=== PATIENT | male | born 1975 ===

== ENCOUNTER 2017-03-14 19:55 | Emergency (ER) | payer MEDICAID ==
[2017-03-14 20:06] VITALS: BP 133/69; PULSE 83; RESP 16; TEMP 98.6; O2SAT 98
--- NOTE | 2017-03-14 21:18 | ED PDOC ---
Lower Extremity Pain/Injury Time Seen by Provider: 03/14/17 20:15 Chief Complaint (Nursing): Lower Extremity Problem/Injury Chief Complaint (Provider): Left foot injury History Per: Patient History/Exam Limitations: no limitations Additional Complaint(s): Patient is a 42 y/o male with no significant past medical history presenting to the emergency department for a left foot injury sustained approximately three hours prior to arrival. Reports that as he was working on his car, he slipped on the snow and landed on his foot. He thought that something had snapped. Reports moderate pain on his left leg but is able to bear weight. Denies any other complaints. PCP: Dr. Blayne Dickinson Past Medical History Reviewed: Historical Data, Nursing Documentation, Vital Signs Vital Signs: Last Vital Signs Temp 98.6 F 03/14/17 20:04 Pulse 83 03/14/17 20:04 Resp 16 03/14/17 20:04 BP 133/69 03/14/17 20:04 Pulse Ox 98 03/14/17 20:04 - Medical History PMH: No Chronic Diseases - Family History Family History: States: No Known Family Hx - Immunization History Hx Tetanus Toxoid Vaccination: No Hx Influenza Vaccination: No Hx Pneumococcal Vaccination: No - Home Medications Home Medications: Ambulatory Orders Medication Instructions Recorded Ibuprofen [Motrin Tab] 800 mg PO Q8H PRN #15 tab 10/14/13 Motrin 800 mg PO 10/14/13 oxyCODONE/Acetaminophen [Percocet 1 tab PO QID PRN #4 tab 10/14/13 5/325 mg Tab] Naproxen 1 tab PO Q12 PRN #14 tab 03/14/17 - Allergies Allergies/Adverse Reactions: Allergies Allergy/AdvReac Type Severity Reaction Status Date / Time No Known Allergies Allergy Unverified 10/14/13 20:37 Review of Systems ROS Statement: Except As Marked, All Systems Reviewed And Found Negative Musculoskeletal: Positive for: Leg Pain (left leg and ankle) Physical Exam - Reviewed Nursing Documentation Reviewed: Yes Vital Signs Reviewed: Yes - Physical Exam Appears: Positive for: Well, Non-toxic, No Acute Distress Head Exam: Positive for: ATRAUMATIC, NORMAL INSPECTION, NORMOCEPHALIC Skin: Positive for: Normal Color, Warm, Dry Eye Exam: Positive for: Normal appearance Neck: Positive for: Normal, Painless ROM Cardiovascular/Chest: Positive for: Regular Rate, Rhythm Respiratory: Negative for: Accessory Muscle Use, Respiratory Distress Extremity: Positive for: Normal ROM, Tenderness (left lateral malleolus and left lateral leg. nontender knee.) Neurologic/Psych: Positive for: Alert, Oriented (x3) - ECG O2 Sat by Pulse Oximetry: 98 (RA) Pulse Ox Interpretation: Normal - Progress ED Course And Treament: ANKLE: NO ACUTE FX LEFT FOOT: NO ACUTE FX LEFT TIB/FIB: NO ACUTE FX PATIENT PLACED IN AIR-[employer] AND CRUTCHES Medical Decision Making Medical Decision Making: Time: 20:19 Initial impression: Left foot injury Initial plan: Left ankle x-ray Left foot x-ray Left tibia/fibula x-ray Reevaluation 21:20 Left ankle and foot x-ray: no acute findings. ~ Scribe Attestation: Documented by Skylar Mckoy, acting as a scribe for JHONY Cates. Provider Scribe Attestation: All medical record entries made by the Scribe were at my direction and personally dictated by me. I have reviewed the chart and agree that the record accurately reflects my personal performance of the history, physical exam, medical decision making, and the department course for this patient. I have also personally directed, reviewed, and agree with the discharge instructions and disposition. Disposition - Clinical Impression Clinical Impression: Ankle sprain and strain - Patient ED Disposition Is Patient to be Admitted: No - Disposition Referrals: Podiatry Clinic [Outside] Disposition: Routine/Home Disposition Time: 21:47 Condition: FAIR Prescriptions: Naproxen 1 tab PO Q12 PRN #14 tab PRN Reason: Pain, Moderate (4-7) Instructions: Ankle Sprain (ED) Forms: [employer] ([place]), [facility] ED School/Work Excuse
--- NOTE | 2017-03-15 11:08 | RAD ---
PROCEDURE: Left Ankle Radiographs. HISTORY: ankle injury COMPARISON: None FINDINGS: BONES: No acute fracture. . JOINTS: Ankle mortise maintained. Talar dome intact SOFT TISSUES: Lateral malleolar soft tissue swelling. OTHER FINDINGS: Small ankle joint effusion. IMPRESSION: Lateral malleolar soft tissue swelling and small ankle joint effusion without demonstrated fracture or dislocation.
--- NOTE | 2017-03-15 11:09 | RAD ---
PROCEDURE: Left Foot Radiographs. HISTORY: injury COMPARISON: None. FINDINGS: BONES: No acute fracture. . JOINTS: Normal. SOFT TISSUES: Unremarkable. OTHER FINDINGS: None. IMPRESSION: No demonstrated fracture or dislocation.
--- NOTE | 2017-03-15 11:10 | RAD ---
PROCEDURE: Radiographs of the left tibia and fibula. HISTORY: INJURY COMPARISON: None available. TECHNIQUE: Frontal and lateral views obtained. FINDINGS: BONES: No fracture or destructive lesion. JOINT SPACES: Unremarkable. OTHER FINDINGS: Mild lateral malleolar soft tissue swelling. Small ankle joint effusion IMPRESSION: Mild lateral malleolar soft tissue swelling and small ankle joint effusion without demonstrated fracture or dislocation.
== END 2017-03-14 22:22 | disposition home or self-care (01) ==
LOC: H.ER 19:55
DX: S93.402A Sprain of unspecified ligament of left ankle, initial encounter (principal); W00.0XXA Fall on same level due to ice and snow, initial encounter

== ENCOUNTER 2018-06-05 03:45 | Emergency (ER) | payer MEDICAID ==
[2018-06-05 04:11] VITALS: RESP 18; O2SAT 99
[2018-06-05] MEDS ORDERED: Tdap Vaccine 0.5 ml Vial (10-64 yrs) IM ONE ×2 (04:25→04:38)
[2018-06-05] MEDS ORDERED: Naproxen 500 MG TAB PO ONE (04:26)
--- NOTE | 2018-06-05 05:00 | ED PDOC ---
Upper Extremity Pain/Injury Time Seen by Provider: 06/05/18 04:01 Chief Complaint (Nursing): Finger,Hand,&Wrist Chief Complaint (Provider): Finger,Hand,&Wrist History Per: Patient History/Exam Limitations: no limitations Onset/Duration Of Symptoms: Days (2) Additional Complaint(s): 43 y/o male presents to the ED complaining of right had injury x2 days ago. Patient states that 2 days ago he was cleaning up glass from a broken windshield and accidentally got a piece of glass stuck in his right index finger. Patient has had throbbing pain since. Denies numbness or tingling. Patient's tetanus is not up to date. Past Medical History Reviewed: Historical Data, Nursing Documentation, Vital Signs Vital Signs: Last Vital Signs Temp 98.1 F 06/05/18 04:08 Pulse 68 06/05/18 04:08 Resp 18 06/05/18 04:08 BP 154/92 H 06/05/18 04:08 Pulse Ox 99 06/05/18 04:08 - Medical History PMH: No Chronic Diseases - Surgical History Surgical History: No Surg Hx - Family History Family History: States: Unknown Family Hx - Immunization History Hx Tetanus Toxoid Vaccination: No Hx Influenza Vaccination: No Hx Pneumococcal Vaccination: No - Home Medications Home Medications: Ambulatory Orders Medication Instructions Recorded Ibuprofen [Motrin Tab] 800 mg PO Q8H PRN #15 tab 10/14/13 Motrin 800 mg PO 10/14/13 oxyCODONE/Acetaminophen [Percocet 1 tab PO QID PRN #4 tab 10/14/13 5/325 mg Tab] Naproxen 1 tab PO Q12 PRN #14 tab 03/14/17 Amoxicillin/Clavulanate [Augmentin 1 tab PO BID #20 tab 06/05/18 875 MG-125 MG] - Allergies Allergies/Adverse Reactions: Allergies Allergy/AdvReac Type Severity Reaction Status Date / Time No Known Allergies Allergy Unverified 10/14/13 20:37 Review of Systems ROS Statement: Except As Marked, All Systems Reviewed And Found Negative Musculoskeletal: Positive for: Hand Pain Neurological: Negative for: Numbness Physical Exam - Reviewed Nursing Documentation Reviewed: Yes Vital Signs Reviewed: Yes - Physical Exam Extremity: Positive for: Normal ROM (Full ROM actively of right 2nd digit), Other (very superficial puncture wound noted to right distal phalanx of 2nd digit with no erythema, discharge, or palpable foreign body). Negative for: Tenderness - ECG O2 Sat by Pulse Oximetry: 99 (RA) Pulse Ox Interpretation: Normal Medical Decision Making Medical Decision Making: Time: 04:25 Initial Impression: Right hand injury Initial Plan: * Tetanus * Naproxen * RAD - Right hand * Clean and irrigate wound R 2nd digit: small linear FB noted Pt. informed that attempting to remove FB that is not palpable will likely cause infection. Scribe Attestation: Documented by Jed Serna, acting as a scribe Nguyen Jacobo PA-C Provider Scribe Attestation: All medical record entries made by the Scribe were at my direction and personally dictated by me. I have reviewed the chart and agree that the record accurately reflects my personal performance of the history, physical exam, medical decision making, and the department course for this patient. I have also personally directed, reviewed, and agree with the discharge instructions and disposition Disposition - Clinical Impression Clinical Impression: Foreign body finger - Patient ED Disposition Is Patient to be Admitted: No - Disposition Referrals: Jose Piper MD [Medical Doctor] - Disposition: Routine/Home Disposition Time: 06:00 Condition: STABLE Additional Instructions: FOLLOW UP WITH DR. PIPER FOR FURTHER EVALUATION RETURN TO ED IMMEDIATELY IF SYMPTOMS WORSEN SAMMIE BARROS, thank you for letting us take care of you today. Your provider was Fish Nicole MD and you were treated for GLASS IN RIGHT HAND/POINTER FINGER. The emergency medical care you received today was directed at your acute symptoms. If you were prescribed any medication, please fill it and take as directed. It may take several days for your symptoms to resolve. Return to the Emergency Department if your symptoms worsen, do not improve, or if you have any other problems. Please contact your doctor or call one of the physicians/clinics you have been referred to that are listed on the Patient Visit Information form that is included in your discharge packet. Bring any paperwork you were given at discharge with you along with any medications you are taking to your follow up visit. Our treatment cannot replace ongoing medical care by a primary care provider outside of the emergency department. Thank you for allowing the [facility] team to be part of your care today. If you had an X-Ray or CT scan: A Radiologist will review the ED reading if any change in treatment is needed we will contact you. If you had a blood, urine, or wound culture: It will take several days for the results, if any change in treatment is needed we will contact you. If you had an STI test: It will take 48 hours for the results. Please call after 1 week if you have not heard back. Prescriptions: Amoxicillin/Clavulanate [Augmentin 875 MG-125 MG] 1 tab PO BID #20 tab Instructions: Foreign Body in Skin (DC) Forms: [employer] ([place]) Print Language: [place]
[2018-06-05 06:15] VITALS: BP 139/88; PULSE 66; TEMP 98
--- NOTE | 2018-06-05 08:31 | RAD ---
Date of service: 06/05/2018 PROCEDURE: Right Index finger radiographs. HISTORY: FB in R 2nd digit COMPARISON: None. TECHNIQUE: AP radiograph of the right hand, as well as spot oblique and lateral images of index finger were obtained. 3 views obtained. FINDINGS: RIGHT INDEX FINGER: Normal right index finger, without fracture or focal lesion. Remainder of the right hand (as seen on the AP view) grossly intact. JOINTS: Normal. SOFT TISSUES: There is a linear radiodensity approximately 2.5 mm by 1 mm identified at the distal right index finger tuft soft tissues more so at the ventral than dorsal surface. No additional retained radiodense foreign body appreciated. OTHER FINDINGS: None. IMPRESSION: A small, linear retained radiodense foreign body is identified within the tuft soft tissues of the distal right index finger. No fracture or dislocation throughout the osseous elements of the right hand as discussed above.
== END 2018-06-05 06:15 | disposition home or self-care (01) ==
LOC: H.ER 03:45
DX: S60.451A Superficial foreign body of left index finger, initial encounter (principal); W25.XXXA Contact with sharp glass, initial encounter; Y92.89 Other specified places as the place of occurrence of the external cause